=== PATIENT | female | born 1950 | race Asian ===

== ENCOUNTER 2017-05-09 17:15 | Emergency (ER) | payer MEDICAID, MEDICARE, SELFPAY ==
[~2017-05-09] VITALS: Ht 157.5 cm; Wt 45.0 kg
[~2017-05-09 17:15] MED LIST: METO-93 PO
[2017-05-09 17:23] VITALS: BP 142/97
== END 2017-05-09 17:51 | disposition home or self-care (01) ==
LOC: ED 17:19
DX: B00.1 Herpesviral vesicular dermatitis (principal); Z72.89 Other problems related to lifestyle
CPT/HCPCS: 93005; 99283

== ENCOUNTER 2017-05-11 00:47 | Emergency (ER) | payer MEDICARE ==
[~2017-05-11] VITALS: Ht 157.5 cm; Wt 47.0 kg
[2017-05-11 01:41] LABS: ASPARTATE AMINO TRANSFERASE 25 U/L (15-37); BLOOD UREA NITROGEN 24 mg/dL (7-18)
[2017-05-11 01:45] LABS: IS PT STATUS REG ER OR PRE ER? YES
[2017-05-11 01:47] VITALS: BP 170/77
== END 2017-05-11 03:10 | disposition home or self-care (01) ==
LOC: ED 01:01
DX: L01.01 Non-bullous impetigo (principal); R53.1 Weakness; I10 Essential (primary) hypertension; F17.200 Nicotine dependence, unspecified, uncomplicated; Z88.0 Allergy status to penicillin
CPT/HCPCS: 36415; 71010; 80053; 84484; 85025; 93005; 99285

== ENCOUNTER 2017-06-07 02:59 | Emergency (ER) | payer MEDICARE ==
[~2017-06-07] VITALS: Ht 157.5 cm; Wt 42.1 kg
[2017-06-07 03:01] VITALS: BP 167/85
== END 2017-06-07 06:36 | disposition home or self-care (01) ==
LOC: ED 05:45
DX: Z00.00 Encounter for general adult medical examination without abnormal findings (principal); I10 Essential (primary) hypertension
CPT/HCPCS: 99283

== ENCOUNTER 2017-07-02 13:48 | Emergency (ER) | payer MEDICAID, MEDICARE ==
[~2017-07-02] VITALS: Ht 157.5 cm; Wt 41.0 kg
[2017-07-02] MEDS ORDERED: SODIUM CHLORIDE 0.9% 1,000ML IVBOLUS ONE (14:00)
[2017-07-02] MEDS ORDERED: SODIUM CHLORIDE FLUSH 10ML SYR IVF ONE (14:00)
[2017-07-02 14:38] LABS: BLOOD UREA NITROGEN 15 mg/dL (7-18)
[2017-07-02 16:24] VITALS: BP 168/102
== END 2017-07-02 16:26 | disposition home or self-care (01) ==
LOC: ED 15:07
DX: E86.0 Dehydration (principal); I10 Essential (primary) hypertension; Z88.0 Allergy status to penicillin
CPT/HCPCS: 36415; 80048; 82040; 85025; 93005; 96360; 96361; 99285; J7030

== ENCOUNTER 2017-09-11 08:03 | Inpatient (IN) | payer MEDICARE, MEDICAID ==
[~2017-09-11] VITALS: Ht 157.5 cm; Wt 40.7 kg
[2017-09-11] MEDS ORDERED: ASPIRIN 81 MG TABLET CHEW ONE (08:24)
[2017-09-11] MEDS ORDERED: PLEASE ENTER HEIGHT AND WEIGHT MC SCH (08:30)
[2017-09-11 08:36] LABS: HEMATOCRIT 44.7 % (34.6-47.8); HEMOGLOBIN 15.1 g/dL (11.7-16.4); WHITE BLOOD COUNT 14.8 x10^3/uL (3.4-10)
[2017-09-11 08:48] LABS: ASPARTATE AMINO TRANSFERASE 16 U/L (15-37); BLOOD UREA NITROGEN 14 mg/dL (7-18)
[2017-09-11 08:53] LABS: IS PT STATUS REG ER OR PRE ER? YES
[2017-09-11] MEDS ORDERED: SODIUM CHLORIDE 0.9% 1,000ML IVBOLUS ONE ×2 (09:00→10:00)
[2017-09-11] MEDS ORDERED: SODIUM CHLORIDE 0.9% 1,000 ML IV ONE ×2 (09:00→12:00)
[2017-09-11] MEDS ORDERED: ASPIRIN 81 MG TABLET CHEW PO ONE (09:00)
[2017-09-11] MEDS ORDERED: SODIUM CHLORIDE FLUSH 10ML SYR IVF ONE (09:30)
[2017-09-11] MEDS ORDERED: NS + 20MEQ KCL 1,000 ML IV SCH (11:23)
[2017-09-11] MEDS ORDERED: HYDROcodone/APAP 5/325 TABLET PO PRN ×2 (11:30→20:00)
[2017-09-11] MEDS ORDERED: POLYETHYLENE GLYCOL 17 GM PACKET PO PRN ×2 (11:30→20:00)
[2017-09-11] MEDS: ENOXAPARIN 40 MG/0.4 ML SQ SCH (11:30)
[2017-09-11] MEDS: NICOTINE 7 MG/24 HR PATCH.TD24 TD SCH (11:30)
[2017-09-11] MEDS ORDERED: DOCUSATE 100 MG CAPSULE PO PRN ×2 (11:30→20:00)
[2017-09-11] MEDS ORDERED: CEFTRIAXONE PMX 1GM/50ML 50 ML IV ONE (11:30)
[2017-09-11] MEDS ORDERED: ONDANSETRON 2MG/ML, 2ML IVPush PRN ×2 (11:30→20:00)
[2017-09-11] MEDS ORDERED: ACETAMINOPHEN 325 MG TABLET PO PRN ×2 (11:30→20:00)
[2017-09-11] MEDS ORDERED: SODIUM CHLORIDE FLUSH 10ML SYR IVF PRN (12:00)
[2017-09-11 12:44] VITALS: BP 107/72
[2017-09-11] MEDS: METOPROLOL SUCCINATE 50 MG TAB.ER.24H PO SCH (19:41)
[2017-09-11 20:03] VITALS: BP 148/75
[2017-09-12 02:06] VITALS: BP 178/78
[2017-09-12 02:46] VITALS: BP 141/73
[2017-09-12 05:18] LABS: BLOOD UREA NITROGEN 15 mg/dL (7-18)
[2017-09-12 05:21] LABS: HEMOGLOBIN 13.2 g/dL (11.7-16.4)
[2017-09-12 07:55] VITALS: BP 158/83
[2017-09-12] MEDS ORDERED: SENNA/DOCUSATE TABLET PO SCH (09:00)
[2017-09-12] MEDS: SENNA/DOCUSATE TABLET PO SCH (09:00)
[2017-09-12] MEDS: METOPROLOL SUCCINATE 50 MG TAB.ER.24H PO SCH ×2 (09:34→20:32)
[2017-09-12] MEDS ORDERED: TRAZ50TA18 PO (09:42)
[2017-09-12] MEDS ORDERED: ENAL20TA PO (09:42)
[2017-09-12] MEDS: NICOTINE 7 MG/24 HR PATCH.TD24 TD SCH (11:30)
[2017-09-12 11:45] VITALS: BP 163/70
[2017-09-12] MEDS: ENOXAPARIN 40 MG/0.4 ML SQ SCH (11:49)
[2017-09-12 14:28] VITALS: BP 152/75
[2017-09-12] MEDS ORDERED: CEFTRIAXONE PMX 1GM/50ML 50 ML IV ONE (16:00)
[2017-09-12 19:56] VITALS: BP 158/75
[2017-09-13] VITALS (8 sets, daily range): BP systolic 120–210; BP diastolic 61–94
[2017-09-13] MEDS ORDERED: NITROGLYCERIN 0.4 MG/SPRAY SL PRN ×2 (03:00)
[2017-09-13] MEDS ORDERED: NITROGLYCERIN 0.4 MG BOTTLE (25 TABS) SL PRN (03:00)
[2017-09-13] MEDS ORDERED: hydrALAzine 20 MG/ML, 1ML IV PRN (04:30)
[2017-09-13] MEDS: SENNA/DOCUSATE TABLET PO SCH (09:00)
[2017-09-13] MEDS: METOPROLOL SUCCINATE 50 MG TAB.ER.24H PO SCH (09:53)
[2017-09-13] MEDS: ENOXAPARIN 40 MG/0.4 ML SQ SCH (11:29)
[2017-09-13] MEDS: NICOTINE 7 MG/24 HR PATCH.TD24 TD SCH (11:31)
[2017-09-13] MEDS ORDERED: HYDR-3341 PO (15:02)
== END 2017-09-13 16:27 | disposition home or self-care (01) | DRG 73 ==
LOC: ED 10:21 → EDIP 10:49 → 5SO 12:41
PROVIDERS: ADMIT Family Medicine; ATTEND Family Medicine
DX: G90.9 Disorder of the autonomic nervous system, unspecified (principal); E43 Unspecified severe protein-calorie malnutrition; N39.0 Urinary tract infection, site not specified; Z68.1 Body mass index [BMI] 19.9 or less, adult; E86.0 Dehydration; F17.200 Nicotine dependence, unspecified, uncomplicated; I10 Essential (primary) hypertension; I16.0 Hypertensive urgency; F32.9 Major depressive disorder, single episode, unspecified; J32.0 Chronic maxillary sinusitis; Z66 Do not resuscitate; Z79.82 Long term (current) use of aspirin; Z86.73 Personal history of transient ischemic attack (TIA), and cerebral infarction without residual deficits; Y93.89 Activity, other specified; Y92.89 Other specified places as the place of occurrence of the external cause
CPT/HCPCS: 36415; 70450; 71010; 80048; 80053; 81001; 83605; 83735; 84484; 85025; 87086; 93005; 93306; 99285; J0696; J1650; J3480; J0360; J7030

== ENCOUNTER 2017-11-28 12:02 | Emergency (ER) | payer MEDICARE, MEDICAID ==
[~2017-11-28] VITALS: Ht 157.5 cm; Wt 38.0 kg
[~2017-11-28 12:02] MED LIST changes: +ENAL20TA PO; +HYDR-3341 PO; +TRAZ50TA18 PO
[2017-11-28] MEDS ORDERED: SODIUM CHLORIDE 0.9% 1,000ML IVBOLUS ONE (13:00)
[2017-11-28] MEDS ORDERED: ONDANSETRON 2MG/ML, 2ML IVPush ONE (13:00)
[2017-11-28] MEDS ORDERED: SODIUM CHLORIDE FLUSH 10ML SYR IVF ONE (13:00)
[2017-11-28 13:02] LABS: BASOPHILS # (AUTO) 0.02 x10^3/uL (0-0.1); BASOPHILS % (AUTO) 0 % (0-1); EOSINOPHILS % (AUTO) 0 % (1-7); LYMPHOCYTES # (AUTO) 0.69 x10^3/uL (1-3.4); LYMPHOCYTES % (AUTO) 11 % (22-44); MD NO; MEAN CORPUSCULAR HEMOGLOBIN 30.1 pg (27.0-34.8); MEAN CORPUSCULAR HGB CONC 33.2 g/dL (32.4-35.8); MEAN CORPUSCULAR VOLUME 90.5 fL (80-100); MEAN PLATELET VOLUME 8.1 fL (7.4-10.4); MONOCYTES # (AUTO) 0.88 x10^3/uL (0.2-0.8); MONOCYTES % (AUTO) 14 % (2-9); NEUTROPHILS # (AUTO) 4.69 x10^3/uL (1.8-6.8); NEUTROPHILS % (AUTO) 75 % (42-75); PLATELET COUNT 286 x10^3/uL (130-400); RED BLOOD COUNT 4.89 x10^6/uL (3.82-5.3); RED CELL DISTRIBUTION WIDTH 13.8 % (9.6-15.2)
[2017-11-28 13:15] LABS: ALBUMIN 3.4 g/dL (3.4-5.0); ANION GAP 8 mmol/L (5-15); CALCIUM 8.6 mg/dL (8.5-10.1); CHLORIDE 102 mmol/L (98-107); CREATININE 1.68 mg/dL (0.55-1.02)
[2017-11-28 13:19] LABS: ALKALINE PHOSPHATASE 89 U/L (45-117); BILIRUBIN,TOTAL 0.3 mg/dL (0.2-1.0); TROPONIN I < 0.015 ng/mL (0.000-0.045)
[2017-11-28 13:22] LABS: ALANINE AMINOTRANSFERASE 14 U/L (12-78)
[2017-11-28 14:39] LABS: MICROSCOPIC NOT IND
[2017-11-28 18:30] VITALS: BP 173/91
== END 2017-11-28 19:08 | disposition home or self-care (01) ==
LOC: ED 17:23
DX: R55 Syncope and collapse (principal); N28.9 Disorder of kidney and ureter, unspecified; R10.84 Generalized abdominal pain; I10 Essential (primary) hypertension
CPT/HCPCS: 36415; 74176; 80053; 81003; 83690; 84484; 85025; 93005; 99285

== ENCOUNTER 2017-12-01 11:39 | Inpatient (IN) | payer MEDICARE, MEDICAID ==
[~2017-12-01] VITALS: Ht 157.5 cm; Wt 38.9 kg
[2017-12-01 12:26] LABS: BASOPHILS # (AUTO) 0.01 x10^3/uL (0-0.1); BASOPHILS % (AUTO) 0 % (0-1); EOSINOPHILS % (AUTO) 0 % (1-7); LYMPHOCYTES # (AUTO) 0.81 x10^3/uL (1-3.4); LYMPHOCYTES % (AUTO) 25 % (22-44); MD NO; MEAN CORPUSCULAR HEMOGLOBIN 30.6 pg (27.0-34.8); MEAN CORPUSCULAR HGB CONC 33.8 g/dL (32.4-35.8); MEAN CORPUSCULAR VOLUME 90.4 fL (80-100); MEAN PLATELET VOLUME 8.4 fL (7.4-10.4); MONOCYTES # (AUTO) 0.46 x10^3/uL (0.2-0.8); MONOCYTES % (AUTO) 14 % (2-9); NEUTROPHILS # (AUTO) 1.99 x10^3/uL (1.8-6.8); NEUTROPHILS % (AUTO) 61 % (42-75); PLATELET COUNT 209 x10^3/uL (130-400); RED BLOOD COUNT 4.44 x10^6/uL (3.82-5.3); RED CELL DISTRIBUTION WIDTH 13.6 % (9.6-15.2)
[2017-12-01] MEDS ORDERED: SODIUM CHLORIDE 0.9% 1,000ML IVBOLUS ONE (12:30)
[2017-12-01] MEDS ORDERED: SODIUM CHLORIDE FLUSH 10ML SYR IVF ONE (12:30)
[2017-12-01 12:34] LABS: ALANINE AMINOTRANSFERASE 18 U/L (12-78); ALBUMIN 2.9 g/dL (3.4-5.0); ANION GAP 6 mmol/L (5-15); CALCIUM 7.8 mg/dL (8.5-10.1); CHLORIDE 105 mmol/L (98-107)
[2017-12-01 12:39] LABS: ALKALINE PHOSPHATASE 69 U/L (45-117); BILIRUBIN,TOTAL 0.3 mg/dL (0.2-1.0); TOTAL PROTEIN 6.9 g/dL (6.4-8.2); TROPONIN I < 0.015 ng/mL (0.000-0.045)
[2017-12-01 14:21] LABS: CLOSTRIDIUM DIFFICILE ANTIGEN NEGATIVE; CLOSTRIDIUM DIFFICILE TOXIN NEGATIVE (Negative)
[2017-12-01 17:27] VITALS: BP 189/83
[2017-12-01] MEDS: SODIUM CHLORIDE 0.9% 1,000 ML IV SCH (17:30)
[2017-12-01] MEDS ORDERED: TRAZODONE 50MG TABLET PO PRN (17:30)
[2017-12-01] MEDS ORDERED: ACETAMINOPHEN 325 MG TABLET PO PRN (17:30)
[2017-12-01 17:43] VITALS: BP 170/93
[2017-12-01 18:10] VITALS: BP 168/82
[2017-12-01 18:22] LABS: RAPID INFLUENZA A Negative (Negative); RAPID INFLUENZA B Negative (Negative)
[2017-12-01 18:43] LABS: CULTURE INDICATED? YES; MICROSCOPIC INDICATED
[2017-12-01 19:03] VITALS: BP 162/82
[2017-12-01] MEDS: FLUTICASONE NASAL SPRAY 16GM NAS SCH (20:59)
[2017-12-01] MEDS: METOPROLOL SUCCINATE 50 MG TAB.ER.24H PO SCH (21:00)
[2017-12-01] MEDS: SODIUM CHLORIDE NASAL SPRAY 45ML BOTTLE NAS SCH (21:00)
[2017-12-01] MEDS: SODIUM CHLORIDE FLUSH 10ML SYR IVF SCH (21:02)
[2017-12-02 02:34] VITALS: BP 188/66
[2017-12-02] MEDS: SODIUM CHLORIDE 0.9% 1,000 ML IV SCH (05:16)
[2017-12-02 05:46] LABS: ALBUMIN 2.6 g/dL (3.4-5.0); ANION GAP 5 mmol/L (5-15); CALCIUM 7.5 mg/dL (8.5-10.1); CHLORIDE 108 mmol/L (98-107)
[2017-12-02 05:49] LABS: ALANINE AMINOTRANSFERASE 24 U/L (12-78); ALKALINE PHOSPHATASE 65 U/L (45-117); BILIRUBIN,TOTAL 0.6 mg/dL (0.2-1.0); CREATININE 0.93 mg/dL (0.55-1.02); TOTAL PROTEIN 6.2 g/dL (6.4-8.2)
[2017-12-02 06:08] LABS: BASOPHILS # (AUTO) 0.02 x10^3/uL (0-0.1); BASOPHILS % (AUTO) 1 % (0-1); EOSINOPHILS # (AUTO) 0.01 x10^3/uL (0-0.4); EOSINOPHILS % (AUTO) 0 % (1-7); LYMPHOCYTES % (AUTO) 51 % (22-44); MD NO; MEAN CORPUSCULAR HEMOGLOBIN 30.1 pg (27.0-34.8); MEAN CORPUSCULAR HGB CONC 33.2 g/dL (32.4-35.8); MEAN CORPUSCULAR VOLUME 90.7 fL (80-100); MEAN PLATELET VOLUME 8.5 fL (7.4-10.4); MONOCYTES # (AUTO) 0.43 x10^3/uL (0.2-0.8); MONOCYTES % (AUTO) 14 % (2-9); NEUTROPHILS % (AUTO) 35 % (42-75); PLATELET COUNT 164 x10^3/uL (130-400); RED BLOOD COUNT 4.15 x10^6/uL (3.82-5.3)
[2017-12-02 08:02] VITALS: BP 195/82
[2017-12-02] MEDS: SODIUM CHLORIDE FLUSH 10ML SYR IVF SCH ×2 (08:11→20:57)
[2017-12-02] MEDS: METOPROLOL SUCCINATE 50 MG TAB.ER.24H PO SCH ×2 (08:12→20:57)
[2017-12-02] MEDS: SODIUM CHLORIDE NASAL SPRAY 45ML BOTTLE NAS SCH ×2 (08:13→21:23)
[2017-12-02] MEDS: FLUTICASONE NASAL SPRAY 16GM NAS SCH ×2 (08:13→21:23)
[2017-12-02 13:54] VITALS: BP 168/68
[2017-12-02] MEDS ORDERED: CETIRIZINE 10 MG TABLET PO PRN (15:30)
[2017-12-02] MEDS: HEPARIN 5,000 UNITS/ML, 1ML SQ SCH ×2 (15:30→23:57)
[2017-12-02] MEDS ORDERED: ENALAPRILAT 1.25 MG/ML, 2ML IV PRN (15:30)
[2017-12-02 15:37] LABS: CHOL/HDL RATIO 3.1; LDL/HDL RATIO 1.6 (0.5-3.0)
[2017-12-02] MEDS: ASPIRIN 81 MG TABLET EC PO SCH (15:37)
[2017-12-02] MEDS: ENALAPRIL 20MG TABLET PO SCH (16:27)
[2017-12-02] MEDS ORDERED: SIMVASTATIN 10 MG TABLET PO SCH (21:00)
[2017-12-02 21:35] VITALS: BP 172/75
[2017-12-03 00:02] VITALS: BP 175/77
[2017-12-03 05:44] LABS: BASOPHILS # (AUTO) 0.03 x10^3/uL (0-0.1); BASOPHILS % (AUTO) 1 % (0-1); EOSINOPHILS # (AUTO) 0.01 x10^3/uL (0-0.4); EOSINOPHILS % (AUTO) 0 % (1-7); LYMPHOCYTES # (AUTO) 2.23 x10^3/uL (1-3.4); LYMPHOCYTES % (AUTO) 47 % (22-44); MD NO; MEAN CORPUSCULAR HEMOGLOBIN 30.1 pg (27.0-34.8); MEAN CORPUSCULAR HGB CONC 33.3 g/dL (32.4-35.8); MEAN CORPUSCULAR VOLUME 90.4 fL (80-100); MEAN PLATELET VOLUME 8.5 fL (7.4-10.4); MONOCYTES # (AUTO) 0.46 x10^3/uL (0.2-0.8); MONOCYTES % (AUTO) 10 % (2-9); NEUTROPHILS % (AUTO) 42 % (42-75); PLATELET COUNT 160 x10^3/uL (130-400); RED BLOOD COUNT 4.38 x10^6/uL (3.82-5.3); RED CELL DISTRIBUTION WIDTH 13.8 % (9.6-15.2)
[2017-12-03 05:54] LABS: ANION GAP 5 mmol/L (5-15); CALCIUM 8.2 mg/dL (8.5-10.1); CHLORIDE 111 mmol/L (98-107)
[2017-12-03 06:05] LABS: CREATININE 0.84 mg/dL (0.55-1.02); FREE T4 (FREE THYROXINE) 1.09 ng/dL (0.76-1.46)
[2017-12-03] MEDS: ASPIRIN 81 MG TABLET EC PO SCH (06:23)
[2017-12-03 06:39] VITALS: BP 187/82
[2017-12-03] MEDS: HEPARIN 5,000 UNITS/ML, 1ML SQ SCH ×2 (07:30→14:52)
[2017-12-03] MEDS: SODIUM CHLORIDE FLUSH 10ML SYR IVF SCH (07:56)
[2017-12-03] MEDS: FLUTICASONE NASAL SPRAY 16GM NAS SCH (07:56)
[2017-12-03] MEDS: SODIUM CHLORIDE NASAL SPRAY 45ML BOTTLE NAS SCH (07:56)
[2017-12-03] MEDS: ENALAPRIL 20MG TABLET PO SCH (07:57)
[2017-12-03] MEDS: METOPROLOL SUCCINATE 50 MG TAB.ER.24H PO SCH (07:57)
[2017-12-03] MEDS ORDERED: AMLODIPINE 5 MG TABLET PO SCH (09:30)
[2017-12-03 13:05] VITALS: BP 165/80
[2017-12-03] MEDS ORDERED: SODI44SP NAS (16:42)
[2017-12-03] MEDS ORDERED: SIMV10TA3 PO (16:42)
[2017-12-03] MEDS ORDERED: ASPI-621 PO (16:42)
[2017-12-03] MEDS ORDERED: FLUT16SP NAS (16:42)
[2017-12-03] MEDS ORDERED: AMLO5TAB2 PO (16:42)
[2017-12-03] MEDS ORDERED: CETI10TA18 PO (16:42)
== END 2017-12-03 17:38 | disposition home or self-care (01) | DRG 73 ==
LOC: ED 15:12 → EDIP 15:13 → ED 15:34 → 4WST 17:14
PROVIDERS: ADMIT Internal Medicine; ATTEND Internal Medicine
DX: G90.8 Other disorders of autonomic nervous system (principal); N17.0 Acute kidney failure with tubular necrosis; E44.0 Moderate protein-calorie malnutrition; Z68.1 Body mass index [BMI] 19.9 or less, adult; I10 Essential (primary) hypertension; G47.00 Insomnia, unspecified; F17.210 Nicotine dependence, cigarettes, uncomplicated; J30.9 Allergic rhinitis, unspecified; N28.9 Disorder of kidney and ureter, unspecified; Z53.20 Procedure and treatment not carried out because of patient's decision for unspecified reasons; Z66 Do not resuscitate; I35.1 Nonrheumatic aortic (valve) insufficiency; E86.0 Dehydration; D72.819 Decreased white blood cell count, unspecified; F32.9 Major depressive disorder, single episode, unspecified; K59.00 Constipation, unspecified; R19.7 Diarrhea, unspecified; M79.1 Myalgia; Z71.6 Tobacco abuse counseling; Z88.0 Allergy status to penicillin
CPT/HCPCS: 36415; 70450; 71045; 80048; 80053; 80061; 81001; 83605; 83735; 84439; 84443; 84484; 85025; 87086; 87324; 87400; 89055; 93005; 93308; 93880; 96360; 96361; J1644; J7030

== ENCOUNTER 2019-05-01 01:39 | Emergency (ER) | payer MEDICARE, MEDICAID ==
[~2019-05-01] VITALS: Ht 154.9 cm; Wt 50.0 kg
[~2019-05-01 01:39] MED LIST changes: +AMLO-150 PO; +ASPI81TA45 PO; +CETI10TA18 PO; +FLUT16SP NAS; +SIMV10TA3 PO; +SODI44SP NAS; -TRAZ50TA18 PO; +TRAZ50TA66 PO
--- NOTE | 2019-05-01 01:49 | NUR ---
LEFT ARM NUMBNESS X TODAY, POS ETOH, PT STATES BP HIGH
[2019-05-01] MEDS ORDERED: MECLIZINE CHEWABLE 25 MG TAB PO ONE (02:30)
[2019-05-01] MEDS ORDERED: MECLIZINE CHEWABLE 25 MG TAB ONE (02:32)
--- NOTE | 2019-05-01 02:46 | NUR ---
pt in nad at this time labs sent and medicated per mar
[2019-05-01 02:50] LABS: BASOPHILS # (AUTO) 0.07 x10^3/uL (0-0.1); BASOPHILS % (AUTO) 1 % (0-1); EOSINOPHILS # (AUTO) 0.39 x10^3/uL (0-0.4); EOSINOPHILS % (AUTO) 5 % (1-7); LYMPHOCYTES # (AUTO) 2.25 x10^3/uL (1-3.4); LYMPHOCYTES % (AUTO) 28 % (22-44); MD NO; MEAN CORPUSCULAR HEMOGLOBIN 30.7 pg (27.0-34.8); MEAN CORPUSCULAR HGB CONC 32.4 g/dL (32.4-35.8); MEAN CORPUSCULAR VOLUME 94.8 fL (80-100); MEAN PLATELET VOLUME 9.3 fL (7.4-10.4); MONOCYTES # (AUTO) 0.79 x10^3/uL (0.2-0.8); MONOCYTES % (AUTO) 10 % (2-9); NEUTROPHILS # (AUTO) 4.54 x10^3/uL (1.8-6.8); NEUTROPHILS % (AUTO) 57 % (42-75); PLATELET COUNT 213 x10^3/uL (130-400); RED BLOOD COUNT 4.31 x10^6/uL (3.82-5.3); RED CELL DISTRIBUTION WIDTH 13.7 % (9.6-15.2)
[2019-05-01 03:02] LABS: ALBUMIN 3.3 g/dL (3.4-5.0); ANION GAP 6 mmol/L (5-15); CALCIUM 8.4 mg/dL (8.5-10.1); CHLORIDE 110 mmol/L (98-107); CREATININE 1.13 mg/dL (0.55-1.02)
[2019-05-01 03:05] LABS: TROPONIN I < 0.015 ng/mL (0.000-0.045)
[2019-05-01 03:59] VITALS: BP 155/66
== END 2019-05-01 04:02 | disposition home or self-care (01) ==
LOC: ED 01:56
DX: R42 Dizziness and giddiness (principal); R20.0 Anesthesia of skin; R05 Cough; Z72.9 Problem related to lifestyle, unspecified; I10 Essential (primary) hypertension; F32.9 Major depressive disorder, single episode, unspecified; F17.200 Nicotine dependence, unspecified, uncomplicated
CPT/HCPCS: 36415; 71045; 80048; 82040; 84484; 85025; 93005; 99284